=== PATIENT | male | born 1965 | race Caucasian/White ===

== ENCOUNTER → 2022-01-04 | Outpatient (CLI) | payer OTHER ==
[2015-07-23 14:37] VITALS: BP 134/70
[~2022-01-04] MED LIST: DOCU100C28 PO; OXYC5CAP PO; TAMS0.4C97 PO
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
== END ==
LOC: CT 10:27
PROVIDERS: ATTEND Family Medicine
DX: M47.812 Spondylosis without myelopathy or radiculopathy, cervical region (principal); M43.22 Fusion of spine, cervical region; M50.31 Other cervical disc degeneration, high cervical region; M48.02 Spinal stenosis, cervical region; M48.8X2 Other specified spondylopathies, cervical region; M25.78 Osteophyte, vertebrae
CPT/HCPCS: 72125